=== PATIENT | male | born 1990 | race Caucasian/White ===

== ENCOUNTER 2021-03-05 15:04 | Emergency (ER) | payer SELFPAY ==
[~2021-03-05] VITALS: Ht 175.3 cm; Wt 96.3 kg
[2021-03-05 15:05] VITALS: BP 139/88
== END 2021-03-05 20:40 | disposition left against medical advice (07) ==
LOC: M ED 15:04
DX: Z53.21 Procedure and treatment not carried out due to patient leaving prior to being seen by health care provider (principal)